=== PATIENT | female | born 1960 | race Caucasian/White ===

== ENCOUNTER 2017-08-24 02:39 | Day surgery (SDC) | payer BC, OTHER ==
[~2017-08-24] VITALS: Ht 168.9 cm; Wt 101.2 kg
[~2017-08-24 02:39] MED LIST: ASCO-182 PO; EST1T TD; IBU800 PO; IRON1TAB55 PO; KRIL1CAP22 PO; LEV125 PO; LEVO-3 PO; MAX75 PO; MULT1CAP41 PO; MULT1TAB64 PO; OMEG-11 PO; PER PO; POTA20TA85 PO; TOLT2TAB5 PO; TRIA-102 PO; VITA100T4 PO; [UNRECOGNIZED DRUG - CODE] PO
[2017-08-24] MEDS ORDERED: PROPOFOL EMUL(*) 10MG/ML 20 ML 20 ML ONE (07:20)
[2017-08-24 11:00] VITALS: BP 148/102
[2017-08-24] MEDS ORDERED: LIDOCAINE/SOD BICARB 8.4% SYR ID ONE (11:30)
[2017-08-24] MEDS ORDERED: NORMOSOL R SOLN(*) 1000 ML BAG 1,000 ML IV PRN (11:30)
[2017-08-24 13:21] VITALS: BP 125/85
--- NOTE | 2017-08-24 13:27 | Short(Outpt) Discharge Summary ---
Discharge Summary Reason for Hosp/Final Diag: (1) History of colon polyps Status: Chronic Hospital Course & Plan: Colonoscopy with polypectomy completed without any problems. (2) Colon cancer screening Status: Chronic Departure Discharge to: Home, Self Care Discharge Instructions Home Meds Reported Medications Ascorbic Acid (VITAMIN C) 500 Mg Tablet, 500 MG PO QDAY, TAB 07/22/17 Vitamin E Mixed (VITAMIN E) Unknown Strength Tablet, PO DAILY 07/22/17 Krill/Om-3/Dha/Epa/Phospho/Ast (Megared [place]-3 Krill Oil Sfgl) 1 Each Capsule, 1 CAP PO QDAY 07/22/17 Multivitamin (MULTI VITAMIN DAILY) 1 Each Tablet, 1 EACH PO QDAY, TAB 07/22/17 Triamterene/Hctz (TRIAMTERENE-HCTZ 75-50 MG TAB) 1 Each Tab, 1 EACH PO D, TAB 07/13/16 Levothyroxine Sodium (LEVOTHYROXINE SODIUM) 100 Mcg Tablet, 137 MCG PO QDAY, TAB 07/13/16 Estradiol (Climara 0.1 Mg/24 Hr) 1 Ea Tdsy, 1 EA TD Q7D, 0 Refills 01/20/08 Diet: Regular Activity: As Tolerated Special Instructions: Your colonoscopy was completed without problems and you prep was excellent (Good Job!!). I removed a polyp from your cecum in the same place where I removed it last year but it was very small this year and I feel very good about getting it all as opposed to last year where it was a large flat polyp and difficult to completely remove at that time without perforating your colon. I sent the polyp to pathology and my office will call you in the next week or so and let you know what the polyp is but, at any rate, your next colonoscopy should be in 5 years due to the history of polyps. I didn't find any other polyps in your colon. I did place a tiny metal clip on the area where I removed the polyp an you should poop it out in the next 2 weeks. It is very tiny and you will likely not notice when it passes but if you see a small metallic clip in your stool, don't be alarmed about this. The clip helps the polyp removal site to heal and prevents bleedings at the site. You should not get an MRI in the next 30 days without an abdominal x-ray first to see if the clip is gone. BRANDON LUCAS MD Aug 24, 2017 13:27
[2017-08-24 13:38] VITALS: BP 136/85
[2017-08-24 13:51] VITALS: BP 132/88
[2017-08-24 13:52] VITALS: BP 135/93
== END 2017-08-24 14:05 | disposition home or self-care (01) ==
LOC: OR 02:39
PROVIDERS: ATTEND Surgery
DX: Z12.11 Encounter for screening for malignant neoplasm of colon (principal); D12.0 Benign neoplasm of cecum; Z86.010 Personal history of colon polyps
CPT/HCPCS: 00811; 45385; 88305; J2704

== ENCOUNTER → 2017-09-14 | Outpatient (CLI) | payer BC ==
--- NOTE | 2017-09-15 13:44 | RADIOLOGY IMAGING REPORT ---
FACILITY: [facility] [place] PATIENT NAME: ISHMAEL POTTS : [id number] MR: [id number] V: [id number] EXAM DATE: [id number] ORDERING PHYSICIAN: IVETTE OCHOA TECHNOLOGIST: Verito Ricketts PROCEDURE:BILATERAL DIGITAL SCREENING MAMMOGRAM WITH CAD ASSISTED INTERPRETATION & 3D TOMOSYNTHESIS COMPARISON:Prior mammograms 06/15/16, 07/03/15, 12/19/13. INDICATIONS:SCREENING FINDINGS: Breast parenchyma is predominantly fatty density. There are no mammographic findings concerning for malignancy. There is no significant change from priors. DIAGNOSTIC CATEGORY 1--NEGATIVE. RECOMMENDATIONS: ROUTINE MAMMOGRAM AND CLINICAL EVALUATION IN 1 YEAR. IMPRESSION: BIRADS 1: Negative. Dictated by: Silas Lombardi on 09/15/2017 at 8:53 Transcribed by: TAMMY on 09/15/2017 at 10:03 Approved by: Silas Lombardi on 09/15/2017 at 13:44 [facility]
== END ==
LOC: MAMO 00:57
PROVIDERS: ATTEND Obstetrics & Gynecology
DX: Z12.31 Encounter for screening mammogram for malignant neoplasm of breast (principal)
CPT/HCPCS: 77063; 77067